=== PATIENT | female | born 1960 | race Caucasian/White ===

== ENCOUNTER → 2018-04-28 | Outpatient (CLI) | payer OTHER | LOC: RAD 13:07 | DX: J90 Pleural effusion, not elsewhere classified (principal); J98.4 Other disorders of lung ==

== ENCOUNTER → 2018-05-12 | Outpatient (CLI) | payer OTHER | LOC: RAD 12:47 | DX: J90 Pleural effusion, not elsewhere classified (principal); J98.4 Other disorders of lung; R91.8 Other nonspecific abnormal finding of lung field ==